=== PATIENT | female | born 2000 | race Caucasian/White ===

== ENCOUNTER 2023-12-17 12:06 | Emergency (ER) | payer OTHER, SELFPAY ==
[2023-12-17 12:08] VITALS: BP 137/93
--- NOTE | 2023-12-17 12:59 | ED.GENMED ---
History of Present Illness
General
Chief Complaint: Skin Problem
Source: patient
Time Seen by Provider: 12/17/23 12:22
History of Present Illness
History of Present Illness:
23-year-old female with past medical history of anxiety, previous substance abuse, IBS, PTSD presenting to the emergency department for evaluation of a generalized rash that started in September, went to urgent care and received an antibiotic course of
doxycycline which patient states made the rash a little bit better for about 2 to 3 weeks but then rash returned. Patient been dealing with a rash on her own but states did not take anything for it until she started to experience more discomfort
earlier this week and went back to urgent care on Monday who placed her on clindamycin but she is still not had any relief. She now notes a little painful sore to the left inguinal region and also noting the rash being worst on the left anterior
part of her chest/breast. Mother believes the rash all started when patient had moved out of their and had been doing laundry on her own and had been using a fabric softener as a detergent accidentally and believes that the patient was allergic to
this or triggered an eczematous reaction which patient had a history of eczema when she was younger. Patient has been unable to take Benadryl because she had previously addicted this medication in the past but notes she is on hydroxyzine already 4
times a day for her other psychiatric treatments. She denies any fevers, chills, rigors. Has not sought any other medical care other than the 2 urgent care visits during the 2+ months of symptoms
Past History
Past History
ED Past Medical History: Psychiatric and Other (POTS, IBS, Gastroparesis, Anxiety, PTSD, )
ED Past Surgical History: Appendectomy
Social History
Tobacco: Smoker
Alcohol: None
Drug: None
Personal: Single
Living: alone
Employment: Employed
Review of Systems
Review of Systems
All Other Systems: ROS reviewed and negative except as documented in HPI and ROS
Phy Exam
Physical Exam
Physical Exam:
GENERAL: Alert , tearful and upset
EYE: conjunctiva clear
Head: Normocephalic atraumatic
NECK: Supple,
ENT: mmm.
LUNGS: no acute respiratory distress
NEUROLOGICAL: Alert and oriented
SKIN: Warm and dry, generalized macular rash in varying stages along the anterior chest, 2 scabbed over lesions at proximal most portion of left breast with no surrounding erythema or fluctuance. 1 erythematous lesion, mildly weeping clear yellow
fluid but without any fluctuance or induration
MUSCULOSKELETAL: well perfused.
PSYCH: Normal and appropriate interaction.
Scores
Heart Failure Risk
Heart Failure Risk Score: Not Applicable
Heart Score for Chest Pain Patients
STEMI patient?: Not applicable
Withdrawal Assessment of Alcohol
Withdrawal Assessment Completed?: Not applicable
Course
Orders/Labs/Results
Orders:
Orders
12/17/23 12:57
Ibuprofen [Motrin] 600 mg PO NOW STA
Oxycodone [Roxicodone] 5 mg PO NOW STA
12/17/23 13:07
Basic Metabolic Panel Urgent
Complete Blood Count/With Diff Urgent
Abnormal Lab Results
12/17/23
13:07
MCHC 32.0 L g/dL
(33.0-37.0)
RDW 14.9 H %
(11.5-14.5)
BUN 4 L mg/dl
(7-17)
12/17/23 13:07
12/17/23 13:07
Vital Signs
Initial and Last Documented VS:
Initial Vital Signs
Temp Pulse Resp BP Pulse Ox
97.9 F 83 16 137/93 98
12/17/23 12:08 12/17/23 12:08 12/17/23 12:08 12/17/23 12:08 12/17/23 12:08
Last Documented Vital Signs
Temp Pulse Resp BP Pulse Ox
97.9 F 83 16 137/93 98
12/17/23 12:08 12/17/23 12:08 12/17/23 12:08 12/17/23 12:08 12/17/23 12:08
MDM/Problems Addressed
Differential Diagnosis Includes:
contact dermatitis, eczema, scabies, hidradenitis suppurativa, less concern for cellulitis/abscess or secondary infection
MDM/Problems Addressed:
23-year-old female presenting the emergency department for evaluation of a rash that has been ongoing since September. Patient had been using a fabric softener instead of detergent and that is shortly around the time when patient's symptoms started.
Was on doxycycline for a short period of time with no relief. Currently on day 5 of clindamycin with no relief. I am less suspicious for an acute infectious etiology. Will check lab work. Will try to have patient follow-up closely with
dermatology. Due to patient's substance abuse history mother did note that patient had previously abused Benadryl so will avoid this as well as patient is already on hydroxyzine. Patient noting a lot of pain. Will treat her with 1 dose of
oxycodone here but will avoid further opiates or other addictive medications for home use.
*Pulse Oximetry
Patient hypoxic: no
*Critical Care Note
Total Time (30-74mins, 75-104mins- exclusive of procedures): Not Applicable
Patient Management
Escalation/DeEscalation of care consider admission/obs:
Patient's labs are unremarkable. Unfortunately there is no patrol mother on-call to try and help facilitate an outpatient follow-up visit with but I did provide the patient with information for patrol mother. Prescription sent to pharmacy.
Patient advised on return precautions. Otherwise stable for discharge home.
ED Attending Note
-
Portions of this chart may have been created with voice recognition software.� Occasional wrong word or��sound alike� substitutions may have occurred due to the inherent limitations of voice recognition software.
Discharge Plan
Departure
Patient Disposition: Home (Routine Discharge)
Date of Disposition: 06/30/24
Time of Disposition: 13:48
Patient with high blood pressure during this ER visit?: Yes
Discharge Problem:
Rash and nonspecific skin eruption
Instructions: Skin Rash (DC)
Prescriptions:
New
prednisone 10 mg Tablet
See Rx Instructions .ROUTE .COMPLEX Qty: 45 0RF
Rx Instructions:
Take By Mouth:
50 mg daily x3 days, 40 mg daily x3 days,
30 mg daily x3 days, 20 mg daily x3 days,
10 mg daily x3 days
famotidine [Pepcid] 20 mg tablet
20 mg PO BID Qty: 20 0RF
No Action
ondansetron 4 MG tablet,disintegrating
4 mg PO TIDPRN PRN (Reason: nausea/vomiting) Qty: 10 0RF
norgestrel-ethinyl estradiol [Valentin (28)] 1 EACH tablet
1 ea PO DAILY
omeprazole 40 MG capsule,delayed release(DR/EC)
40 mg PO DAILY
spironolactone 12.5 MG tablet
12.5 mg PO DAILY
cefadroxil 500 MG capsule
500 mg PO DAILY
amitriptyline 10 MG tablet
15 mg PO DAILY
mupirocin 2 % ointment
1 applic topical BID Qty: 22 0RF
doxycycline monohydrate 100 mg capsule
100 mg PO BID Qty: 20 0RF
Referrals:
UNKNOWN - PT DOES,NOT KNOW [Family Provider] -
Shelley Jordan, DO [Active] - (Dermatology)
Stand Alone Forms: Return to Work
Interventions
Interventions:
*Risk Screen - Suicide Last Done: 12/17/23 12:33
*General Assessment Last Done: 12/17/23 12:33
*Neglect/Abuse Screening Last Done: 12/17/23 12:33
ED- Fall Risk Assessment Last Done: 12/17/23 14:01
*ED COVID-19 Vaccine History Last Done: 12/17/23 12:33
*Nursing Disposition Last Done: 12/17/23 14:01
ED-Skin Assessment Last Done: 12/17/23 14:01
Discharge Date and Time
Discharge Date/Time: 12/17/23 14:01
Print Language: CHINESE
[2023-12-17] MEDS: ROXICODONE 5 MG PO (13:04)
[2023-12-17] MEDS: MOTRIN 600 MG PO (13:05)
[2023-12-17 13:29] LABS: % Basophils 0.5 % (0-2); % Eosinophils 2.4 % (0-6); % Immature Granulocytes 0.3 % (0-0.5); % Lymphocytes 32.9 % (20.5-51.1); % Monocytes 8.4 % (1.7-9.3); % Neutrophils 55.5 % (42.2-75.2); Absolute Eosinophils 0.2 10^3/uL (0-0.7); Absolute Lymphocytes 2.4 10^3/uL (1.2-3.4); Absolute Monocytes 0.6 10^3/uL (0.1-0.6); Absolute Neutrophils 4.1 10^3/uL (1.4-6.5); Hematocrit 39.4 % (37.0-47.0); Hemoglobin 12.6 g/dL (12.0-16.0); Mean Corpuscular Hgb 27.2 pg (27.0-31.0); Mean Corpuscular Volume 85.1 fL (81.0-99.0); Mean Platelet Volume 9.6 fL (7.4-10.4); Nucleated Red Blood Cells % 0 %; Platelet Count 324 10^3/uL (130-400); Red Blood Cell Count 4.63 10^6/uL (4.20-5.40); Red Cell Dist. Width 14.9 % (11.5-14.5); White Blood Cell Count 7.4 10^3/uL (4.8-10.8)
[2023-12-17 13:34] LABS: Blood Urea Nitrogen 4 mg/dl (7-17); Calcium 9.1 mg/dl (8.4-10.2); Carbon Dioxide 28 mmol/L (22-30); Chloride 105 mmol/L (98-107); Glucose 90 mg/dl (70-99); Potassium 4.3 mmol/L (3.5-5.1); Sodium 138 mmol/L (135-145); eGFR > 60.00
== END 2023-12-17 14:01 | disposition home or self-care (01) ==
LOC: EMR 12:06
PROVIDERS: Physician Assistant Medical; EMERGENCY PHYSICIAN Emergency Medicine
DX: R21 Rash and other nonspecific skin eruption (principal); F41.9 Anxiety disorder, unspecified; F19.10 Other psychoactive substance abuse, uncomplicated; K58.9 Irritable bowel syndrome, unspecified; F43.10 Post-traumatic stress disorder, unspecified; F17.200 Nicotine dependence, unspecified, uncomplicated; K31.84 Gastroparesis
CPT/HCPCS: 99283; 80048; 85025

== ENCOUNTER 2025-02-16 22:48 | Emergency (ER) | payer OTHER, SELFPAY ==
[2025-02-16 23:09] VITALS: BP 124/86
[2025-02-17 01:00] VITALS: BMI 36.3
[2025-02-17 01:30] LABS: HCG, Urine Qualitative Screen Negative
--- NOTE | 2025-02-17 05:02 | ED.GENMED ---
History of Present Illness
General
Chief Complaint: Crisis Evaluation
Source: patient
Exam Limitations: none
Time Seen by Provider: 02/17/25 00:48
Nursing documentation reviewed up to this point in time: agreed with
History of Present Illness
History of Present Illness:
This is a 24-year-old woman with history of anxiety, depression, PTSD, POTS, asthma. History of substance abuse but states she has been clean and sober since November of this year.
She admits to increased stress, anxiety with several week history of suicidal thoughts that have been worsening and she presents voluntarily admitting that 'I want to kill myself'
She is voluntarily seeking help for her suicidal thoughts.
Past History
Past History
ED Past Medical History: Psychiatric (Anxiety/depression, PTSD) and Other (POTS, IBS, Gastroparesis, Anxiety, PTSD, )
ED Past Surgical History: Appendectomy
Social History
Tobacco: Smoker
Alcohol: None
Drug: Former user (Sober since November 2024)
Personal: Single
Living: alone
Employment: Employed
Family History
Family History: Other (Noncontributory)
Phy Exam
Physical Exam
Physical Exam:
GENERAL: 24-year-old female appears her stated age, awake and alert, pleasant, somewhat soft-spoken but easily communicative and in no acute distress.
EYE: . anicteric
NECK: Supple, nontender, no meningismus, no significant adenopathy.
ENT: oral mucosa is moist. No rhinorrhea.
CARDIAC: Regular rate and rhythm. no murmur.
LUNGS: Clear breath sounds bilaterally, no acute respiratory distress, no wheezes/rales/rhonchi
ABDOMEN: Soft, nondistended, without focal tenderness
NEUROLOGICAL: Alert and oriented x3, no focal neuro deficits. Gait is steady.
SKIN: Warm and dry, normal color, skin intact. No rash.
MUSCULOSKELETAL: No C/C/E. peripheral pulses are full and equal b/l. No palpable tenderness.
PSYCH: Admits to suicidal thoughts, wish.
Course
Orders/Labs/Results
Orders:
Orders
02/16/25 23:14
1:1 Observation - Suicide/ Violent Behavior As Directed
Crisis Consult Urgent
Reason for Consult: +SI with plan
02/17/25 01:17
Test Result ONCE
02/17/25 01:19
HCG, Urine Qualitative Screen Urgent
Date Specimen was Collected: 02/17/25
Time Specimen was Collected: 01:17
Urine Drug Abuse Screen Urgent
Date Specimen was Collected: 02/17/25
Time Specimen was Collected: :17
Vital Signs
Initial and Last Documented VS:
Initial Vital Signs
Temp Pulse Resp BP Pulse Ox
98.6 F 83 18 124/86 95
02/16/25 23:09 02/16/25 23:09 02/16/25 23:09 02/16/25 23:09 02/16/25 23:09
Last Documented Vital Signs
Temp Pulse Resp BP Pulse Ox
98.6 F 83 18 124/86 95
02/16/25 23:09 02/16/25 23:09 02/16/25 23:09 02/16/25 23:09 02/16/25 23:09
MDM/Problems Addressed
Differential Diagnosis Includes:
Suicidal thoughts, wish. Concern for self-harm.
Prior history of drug use and reports sober since November. Concern for relapse.
MDM/Problems Addressed:
Depression/suicidal thoughts.
Prior history of substance use disorder.
Will consult crisis for evaluation. Patient is agreeable to inpatient psychiatric care.
Will check UDS, UCG.
Will continue one-to-one observation/safety hold.
Chronic conditions affecting care: Psychiatric illness
*Pulse Oximetry
SaO2: 95
Oxygen Mode of Delivery: Room air
Patient hypoxic: no
*Critical Care Note
Total Time (30-74mins, 75-104mins- exclusive of procedures): Not Applicable
Update Note
Update Note:
Patient has been evaluated by Jade talley and has been accepted to [facility].
UDS is negative as is hCG.
She remains agreeable to inpatient psychiatric care.
ED Attending Note
-
Portions of this chart may have been created with voice recognition software.� Occasional wrong word or��sound alike� substitutions may have occurred due to the inherent limitations of voice recognition software.
Discharge Plan
Departure
Patient Disposition: Psych Facility
Date of Disposition: 02/17/25
Time of Disposition: 05:02
Condition: Good
Discharge Problem:
Major depression with suicidal ideation
Prescriptions:
No Action
omeprazole 40 MG capsule,delayed release(DR/EC)
40 mg PO BID
valacyclovir 1 gram Tablet
1,000 mg PO DAILY
rizatriptan 10 mg Tablet,Disintegrating
10 mg PO ONCE PRN (Reason: migraine )
diclofenac sodium 75 mg Tablet,Delayed Release (Dr/Ec)
75 mg PO DAILY
hydroxyzine HCl 25 mg Tablet
25 mg PO Q6 PRN (Reason: anxiety)
albuterol sulfate 90 mcg/actuation Hfa Aerosol Inhaler
2 puff INHALATION QID PRN (Reason: Asthma resuce inhalher)
propranolol 20 mg Tablet
20 mg PO TID
topiramate 50 mg Tablet
50 mg PO DAILY
gabapentin 100 mg Tablet
100 mg PO TID
mirabegron 50 mg Tablet Extended Release 24 Hr
50 mg PO DAILY
prucalopride 2 mg Tablet
2 mg PO DAILY
Seysara 150 mg Tablet
150 mg PO DAILY
Qulipta 60 mg Tablet
60 mg PO DAILY
ondansetron 4 MG tablet,disintegrating
4 mg PO BIDPRN PRN (Reason: nausea/vomiting)
Referrals:
UNKNOWN - PT DOES,NOT KNOW [Family Provider]
Interventions
Interventions:
*Risk Screen - Suicide Last Done: 02/16/25 23:09
*General Assessment Last Done: 02/16/25 23:09
*Neglect/Abuse Screening Last Done: 02/16/25 23:09
*ED- Fall Risk Assessment Last Done: 02/17/25 01:00
*ED COVID-19 Vaccine History Last Done: 02/16/25 23:09
ED-Psychological Assessment Last Done: 02/17/25 01:00
Discharge Date and Time
Print Language: LUXEMBOURGER
[2025-02-17 07:57] VITALS: BP 123/76
--- NOTE | 2025-02-17 11:27 | EDRN ---
Patient awake and alert. calm and watching television while laying in bed when rn entered room. 1:1 for safety observation at bedside. Patient provided apple juice. Denies other needs at this time. Awaiting transport to mental health facility.
== END 2025-02-17 12:04 ==
LOC: EMR 22:48
PROVIDERS: EMERGENCY PHYSICIAN Emergency Medicine
DX: F32.9 Major depressive disorder, single episode, unspecified (principal); R45.851 Suicidal ideations; F41.9 Anxiety disorder, unspecified; F32.A Depression, unspecified; F43.10 Post-traumatic stress disorder, unspecified; G90.A Postural orthostatic tachycardia syndrome [POTS]; J45.909 Unspecified asthma, uncomplicated; K31.84 Gastroparesis; K58.9 Irritable bowel syndrome, unspecified; F17.200 Nicotine dependence, unspecified, uncomplicated
CPT/HCPCS: 99285; 80306; 81025

== ENCOUNTER 2025-04-30 16:34 | Emergency (ER) | payer OTHER, SELFPAY ==
[2025-04-30 16:36] VITALS: BP 143/91
[2025-04-30 16:49] LABS: Hematocrit 39.9 % (37.0-47.0); Hemoglobin 13.5 g/dL (12.0-16.0); Mean Corp Hgb Conc. 33.8 g/dL (33.0-37.0); Mean Corpuscular Volume 85.6 fL (81.0-99.0); Nucleated Red Blood Cells % 0 %; Platelet Count 304 10^3/uL (130-400); Red Cell Dist. Width 12.9 % (11.5-14.5)
[2025-04-30 17:00] LABS: HCG, Serum Qualitative Screen Negative
[2025-04-30 17:04] LABS: ALT (SGPT) 26 U/L (0-35); AST (SGOT) 20 U/L (14-36); Albumin 4.3 g/dl (3.5-5.0); Alkaline Phosphatase 89 U/L (38-126); Blood Urea Nitrogen 9 mg/dl (7-17); Calcium 9.0 mg/dl (8.4-10.2); Carbon Dioxide 24 mmol/L (22-30); Chloride 107 mmol/L (98-107); Glucose 91 mg/dl (70-99); Lipase 166 U/L (23-300); Potassium 3.8 mmol/L (3.5-5.1); Sodium 136 mmol/L (135-145); Total Protein 7.3 g/dl (6.3-8.2); eGFR > 60.00
[2025-04-30 19:44] VITALS: BP 136/77
--- NOTE | 2025-04-30 19:51 | ED.GENMED ---
History of Present Illness
General
Chief Complaint: Abdominal Pain
Source: patient
Exam Limitations: none
Time Seen by Provider: 04/30/25 19:43
History of Present Illness
History of Present Illness:
See MDM
Past History
Past History
ED Past Medical History: Psychiatric (Anxiety/depression, PTSD) and Other (POTS, IBS, Gastroparesis, Anxiety, PTSD, )
ED Past Surgical History: Appendectomy
Social History
Tobacco: Smoker
Alcohol: None
Drug: Former user (Sober since November 2024)
Personal: Single
Living: alone
Employment: Employed
Family History
Family History: Other (Noncontributory)
Phy Exam
Physical Exam
Physical Exam:
See MDM
Course
Orders/Labs/Results
Orders:
Orders
04/30/25 16:38
Test Result ONCE
04/30/25 16:42
Complete Blood Count/With Diff Urgent
Comprehensive Metabolic Panel Urgent
HCG, Serum Qualitative Screen Urgent
Lipase Urgent
04/30/25 19:50
Mag Hydrox/Al Hydrox/Simeth [Maalox] 30 ml Phenobarb/Hyoscy/Atropine/Scop [] 10 ml Viscous Lidocaine 2% [Xylocaine Viscous Cup] 10 ml PO NOW
Sucralfate [Carafate] 1 gram PO NOW STA
US Abdomen Complete/Upper Urgent
Comment:
Reason For Exam: RUQ pain
04/30/25 19:55
Phenobarb/Hyoscy/Atropine/Scop [] 10 ml .ROUTE .STK-MED ONE
04/30/25 19:56
Mag Hydrox/Al Hydrox/Simeth [Maalox] 30 ml .ROUTE .STK-MED ONE
Viscous Lidocaine 2% [Xylocaine Viscous Cup] 15 ml .ROUTE .STK-MED ONE
Abnormal Lab Results
04/30/25
16:42
Absolute Monos (auto) 0.8 H 10^3/uL
(0.1-0.6)
04/30/25 16:42
04/30/25 16:42
Vital Signs
Initial and Last Documented VS:
Initial Vital Signs
Temp Pulse Resp BP Pulse Ox
98.8 F 113 16 143/91 99
04/30/25 16:36 04/30/25 16:36 04/30/25 16:36 04/30/25 16:36 04/30/25 16:36
Last Documented Vital Signs
Temp Pulse Resp BP Pulse Ox
98.8 F 94 18 116/59 98
04/30/25 16:36 04/30/25 20:24 04/30/25 20:24 04/30/25 21:19 04/30/25 21:19
MDM/Problems Addressed
Differential Diagnosis Includes:
Note:
CHIEF COMPLAINT(S)
Vomiting with presence of blood.
HISTORY OF PRESENT ILLNESS
The patient is a 24-year-old female with a history of gastroparesis and irritable bowel syndrome (IBS) presenting with complaints of vomiting with blood. The onset of symptoms occurred today, initially with a significant amount of blood observed.
She acknowledges having vomited blood in the past but describes this as a larger amount. Prior episodes have been attributed to a tear in the esophagus from forceful vomiting, known as a Julieta-Logan tear. The initial episode of vomiting with blood
today occurred without preceding ingestion of food or medications. Subsequent vomiting had less blood present. The patient is currently taking omeprazole twice daily for gastroparesis. There is associated epigastric pain, described as being most
intense in the right upper quadrant. She denies recent red food consumption which confirms the presence of blood. The patient had an endoscopy about six years ago.
PAST MEDICAL AND SURGICAL HISTORY
History of gastroparesis, irritable bowel syndrome (IBS), and use of several unspecified medications. No surgical history on the abdomen was mentioned.
PHYSICAL EXAM
General: Alert, no acute distress. sitting in bed comfortably.
Skin: Warm, dry.
Head: Normocephalic, atraumatic
Neck: Appears supple, trachea midline.
Eyes, Ears, Nose, Mouth, and Throat: Moist mucous membranes
Cardiovascular: No signs of cyanosis
Respiratory: Respirations are non-labored.
Abdomen: Non-distended. Very mild right upper quadrant tenderness
Musculoskeletal: No deformities
Neurological: No focal neurological deficit observed.
Psychiatric: Cooperative, appropriate mood and affect.
PLAN
An ultrasound of the gallbladder is preferred to evaluate for possible gallbladder disease. If results are normal, further testing with a computed tomography (CT) scan is considered, but not immediately planned due to concerns about radiation
exposure. The patient is advised to follow up with her gastroenterology team for potential repeat endoscopy, as it is necessary for definitive evaluation of an ulcer.
DIFFERENTIAL DIAGNOSIS
- Gastrointestinal bleeding
- Julieta-Logan tear
- Peptic ulcer disease
- Gastritis
- Cholecystitis
- Esophagitis
- Gastroesophageal reflux disease (GERD)
- Esophageal varices
- Duodenal ulcer
- Pancreatitis
SUMMARY OF ENCOUNTER
The patient presented with vomiting that included blood, raising concerns for a potential Julieta-Loagn tear or an ulcer given her prior history of gastroparesis and use of omeprazole. Physical examination indicated right upper quadrant tenderness,
suggesting gallbladder involvement. Initial management included planning for an ultrasound and possible CT scan if needed. Medications were provided for symptomatic relief.
EMERGENCY TREATMENTS ADMINISTERED
The patient received a dose of sucralfate and a GI cocktail containing Maalox and lidocaine to manage symptoms while awaiting further evaluation.
MEDICATION RECONCILIATION
- Omeprazole, twice daily
- A dose of sucralfate administered in the ED
- A GI cocktail with Maalox and lidocaine provided
MEDICAL DECISION MAKING
-Complexity of Data Reviewed: Chronic conditions affecting care including gastroparesis and IBS.
The Differential Diagnosis includes, in no particular order and is not limited to:
- Gastrointestinal bleeding
- Julieta-Logan tear
- Peptic ulcer disease
- Gastritis
- Cholecystitis
- Esophagitis
- Gastroesophageal reflux disease (GERD)
- Esophageal varices
- Duodenal ulcer
- Pancreatitis
-Data:
Category 1
The following testing was considered, but ultimately not selected: CT scan initially deferred due to exposure risks.
Category 3
Discussion of management with gastroenterology suggested for follow-up regarding endoscopy.
-Risk:
Consideration of Admission/Observation: Escalation of care including admission/observation was considered given the complexity and risk of the patients presenting complaint, exam findings, and/or their underlying comorbidities. However, ultimately I
feel the patient is safe for outpatient management with close follow-up. Reasoning: Work-up reassuring, does not reveal any acute life/organ threatening processes, patients symptoms well controlled upon reevaluation, reexamination is reassuring,
vitals are stable, patient agreeable with discharge, reliable for follow-up.
DIAGNOSIS
- Gastrointestinal hemorrhage (K92.2)
- Gastroparesis (K31.84)
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
04/30/25 - 21:31
Ultrasound results are favorable. Patient reports significant fatigue, suggestive of illness-related tiredness rather than a desire to leave the hospital. Initiated carafate therapy; patient advised to contact GI team for further consultation as
needed. No changes made to current medication regimen, including existing omeprazole prescriptions. Monitoring for potential signs of worsening condition, such as increased pain or fever, was discussed, although not anticipated. If no improvement is
noted with carafate in several days, discontinuation may be considered.
SUMMARY OF ENCOUNTER
The patient, a 24-year-old female with a history of gastroparesis and irritable bowel syndrome, presented with vomiting that included blood, raising concerns for a potential Julieta-Logan tear or ulcer. The encounter involved examining her symptoms
and providing initial treatment in the emergency department. The condition improved upon reassessment after administration of a GI cocktail, indicating good response to the symptomatic control.
DISPOSITION
Discharge.
ASSESSMENT
Potential Julieta-Logan tear versus an ulcer.
EMERGENCY TREATMENTS ADMINISTERED
GI cocktail containing Maalox and lidocaine.
REASSESSMENT
The patient reported improvement in symptoms following administration of the GI cocktail.
PLAN
Outpatient follow-up with the gastroenterology team to further evaluate and monitor for potential complications. Recommended return precautions included worsening pain or any evidence of fever.
PATIENT EDUCATION AND COUNSELING
Discussed the potential diagnoses of Julieta-Logan tear versus ulcer and the importance of outpatient follow-up with a java web developer. Reviewed return precautions with the patient, emphasizing signs of potential complications such as worsening
pain or fever.
FOLLOW-UP INSTRUCTIONS
Patient advised to follow up with the gastroenterology team. Provided information for scheduling a follow-up visit.
MEDICATION RECONCILIATION
- Omeprazole, administered twice daily.
- GI cocktail containing Maalox and lidocaine provided in the ED.
MEDICAL DECISION MAKING
-Complexity of Data Reviewed: Chronic conditions affecting care include gastroparesis and irritable bowel syndrome. Differential diagnosis includes gastrointestinal bleeding, Julieta-Logan tear, peptic ulcer disease, gastritis, cholecystitis,
esophagitis, gastroesophageal reflux disease (GERD), esophageal varices, duodenal ulcer, pancreatitis.
-Data:
Category 1
The following testing was considered: CT scan initially deferred due to radiation risk in favor of ultrasound for gallbladder evaluation if needed.
Category 3
Discussion of management with the gastroenterology team regarding the need for a follow-up evaluation and possible repeat endoscopy.
-Risk: Consideration of Admission/Observation: Escalation of care including admission/observation was considered given the complexity and risk of the patients presenting complaint, exam findings, and/or their underlying comorbidities. However,
ultimately I feel the patient is safe for outpatient management with close follow-up. Reasoning: Work-up reassuring, does not reveal any acute life/organ threatening processes, patients symptoms well controlled upon reevaluation, reexamination is
reassuring, vitals are stable, patient agreeable with discharge, reliable for follow-up.
DIAGNOSIS
- Gastrointestinal hemorrhage (K92.2)
- Gastroparesis (K31.84)
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
*Pulse Oximetry
SaO2: 99
Oxygen Mode of Delivery: Room air
Patient hypoxic: no
*Critical Care Note
Total Time (30-74mins, 75-104mins- exclusive of procedures): Not Applicable
ED Attending Note
-
Portions of this chart may have been created with voice recognition software.� Occasional wrong word or��sound alike� substitutions may have occurred due to the inherent limitations of voice recognition software.
Discharge Plan
Departure
Patient Disposition: Home (Routine Discharge)
Date of Disposition: 04/30/25
Time of Disposition: 21:32
Patient with high blood pressure during this ER visit?: No
Discharge Problem:
Abdominal pain
Instructions: Abdominal Pain
Prescriptions:
New
sucralfate [Carafate] 1 gram tablet
1 g PO ACHS Qty: 30 0RF
No Action
omeprazole 40 MG capsule,delayed release(DR/EC)
40 mg PO BID
valacyclovir 1 gram Tablet
1,000 mg PO DAILY
rizatriptan 10 mg Tablet,Disintegrating
10 mg PO ONCE PRN (Reason: migraine )
diclofenac sodium 75 mg Tablet,Delayed Release (Dr/Ec)
75 mg PO DAILY
hydroxyzine HCl 25 mg Tablet
25 mg PO Q6 PRN (Reason: anxiety)
albuterol sulfate 90 mcg/actuation Hfa Aerosol Inhaler
2 puff INHALATION QID PRN (Reason: Asthma resuce inhalher)
propranolol 20 mg Tablet
20 mg PO TID
topiramate 50 mg Tablet
50 mg PO DAILY
gabapentin 100 mg Tablet
100 mg PO TID
mirabegron 50 mg Tablet Extended Release 24 Hr
50 mg PO DAILY
prucalopride 2 mg Tablet
2 mg PO DAILY
Seysara 150 mg Tablet
150 mg PO DAILY
Qulipta 60 mg Tablet
60 mg PO DAILY
ondansetron 4 MG tablet,disintegrating
4 mg PO BIDPRN PRN (Reason: nausea/vomiting)
Referrals:
Teresa Chowdhury MD [Active, Gastroenterology]
Gretel Keenan DO [Family Provider, Internal Medicine]
Activity Restrictions/Additional Instructions:
Please return for any worsening symptoms.
You may return at any time if you have further concerns.
Please follow up with your doctor at the first available appointment, preferably this week.
Please make an appointment to see the java web developer.
Thank you for choosing [facility].
Interventions
Interventions:
*Risk Screen - Suicide Last Done: 04/30/25 20:41
*General Assessment Last Done: 04/30/25 20:41
*Neglect/Abuse Screening Last Done: 04/30/25 20:41
*ED- Fall Risk Assessment Last Done: 04/30/25 20:41
*ED COVID-19 Vaccine History Last Done: 04/30/25 20:41
*ED Influenza Vaccine History Last Done: 04/30/25 20:41
NI-Xkzydz-Kvylnbqiyo Assessment Last Done: 04/30/25 20:45
Discharge Date and Time
Print Language: POLISH
[2025-04-30] MEDS: CARAFATE 1 GRAM PO (19:59)
[2025-04-30] MEDS: MAALOX 50 PO (19:59)
[2025-04-30 20:42] VITALS: BMI 38.3
[2025-04-30 21:19] VITALS: BP 116/59
== END 2025-04-30 21:48 | disposition home or self-care (01) ==
LOC: EMR 16:34
PROVIDERS: Emergency Medicine; EMERGENCY PHYSICIAN Student in an Organized Health Care Education/Training Program; FAMILY PHYSICIAN Internal Medicine
DX: R10.11 Right upper quadrant pain (principal); K31.84 Gastroparesis; K58.9 Irritable bowel syndrome, unspecified; G90.A Postural orthostatic tachycardia syndrome [POTS]; F41.9 Anxiety disorder, unspecified; F32.A Depression, unspecified; F43.10 Post-traumatic stress disorder, unspecified; F17.200 Nicotine dependence, unspecified, uncomplicated
CPT/HCPCS: 99284; 76700; 80053; 83690; 84703; 85025

== ENCOUNTER 2025-06-15 19:57 | Emergency (ER) | payer OTHER, SELFPAY ==
[2025-06-15 20:00] VITALS: BP 169/111
[2025-06-15 21:39] VITALS: BMI 43.0
[2025-06-15 21:40] VITALS: BP 141/86
[2025-06-15 21:43] VITALS: BP 141/86
--- NOTE | 2025-06-15 22:57 | ED.GENMED ---
History of Present Illness
General
Chief Complaint: Abdominal Pain
Source: patient and family
Exam Limitations: none
Time Seen by Provider: 06/15/25 22:47
Nursing documentation reviewed up to this point in time: agreed with
History of Present Illness
History of Present Illness:
24-year-old female history of POTS gastroparesis status post appendectomy presents with chills nausea vomiting diarrhea onset 7 days ago not keeping much food down vomiting water seen at an urgent care referred here, multiple blood tests and swabs
done does have some pain in the left lower abdomen she did have amoxicillin few weeks ago for tooth issue
Past History
Past History
ED Past Medical History: Psychiatric (Anxiety/depression, PTSD) and Other (POTS, IBS, Gastroparesis, Anxiety, PTSD, )
ED Past Surgical History: Appendectomy
Social History
Tobacco: Smoker
Alcohol: None
Drug: Former user (Sober since November 2024)
Personal: Single
Living: alone
Employment: Employed
Family History
Family History: Other (Noncontributory)
Review of Systems
Review of Systems
All Other Systems: Not applicable
Constitutional: Reports fatigue and chills
EENT: Denies sore throat
ABD/GI: Reports abdominal pain, nausea, vomiting and diarrhea
: Reports no symptoms
Musculoskeletal: Reports no symptoms
Phy Exam
Physical Exam
Physical Exam:
Physical Exam
General: no apparent distress, not acutely ill
Neck: Lips are slightly dry
Heart: s1/s2 regular rate and rhythm, no murmur. equal radial pulses.
Lungs: no acute respiratory distress. clear bilaterally
Abdomen: Tender in the left lower abdomen
Neuro: alert and oriented. no focal neurological deficits
Skin: no rash
Psychiatric: well kept. interactive and cooperative
Extremities: no edema
Course
Orders/Labs/Results
Orders:
Orders
06/15/25 22:56
Urinalysis Reflex To Culture Urgent
Norovirus by PCR Urgent
SANDRA Source: Feces/Stool
Specimen Description:
STOOL [C difficile Antigen & Toxins] Urgent
SANDRA Source: Feces/Stool
Specimen Description:
Stool Culture Urgent
SANDRA Source: Feces/Stool
Specimen Description:
06/15/25 22:57
0.9% Sodium Chloride 1000 ml [Nss] 2,000 ml IV BOLUS
Diphenhydramine [Benadryl] 25 mg IV NOW STA
Ondansetron Injectable [Zofran] 4 mg IV NOW STA
Test Result ONCE
06/15/25 23:36
Complete Blood Count/With Diff Urgent
Comprehensive Metabolic Panel Urgent
HCG, Serum Qualitative Screen Urgent
06/16/25 00:01
CT Abd/Pel (IV only)-DH only Urgent
Reason For Exam: llq pain
Abnormal Lab Results
06/15/25
23:36
Absolute Monos (auto) 0.7 H 10^3/uL
(0.1-0.6)
Calcium 10.3 H mg/dl
(8.4-10.2)
06/15/25 23:36
06/15/25 23:36
Vital Signs
Initial and Last Documented VS:
Initial Vital Signs
Temp Pulse Resp BP Pulse Ox
98.4 F 96 16 169/111 98
06/15/25 20:00 06/15/25 20:00 06/15/25 20:00 06/15/25 20:00 06/15/25 20:00
Last Documented Vital Signs
Temp Pulse Resp BP Pulse Ox
98.4 F 92 18 124/78 99
06/15/25 20:00 06/16/25 03:15 06/16/25 03:15 06/16/25 03:15 06/16/25 03:15
MDM/Problems Addressed
Differential Diagnosis Includes:
Norovirus dehydration C. difficile colitis viral syndrome diverticulitis infectious diarrhea
MDM/Problems Addressed:
Nausea vomiting diarrhea
Chronic conditions affecting care:
Gastroparesis POTS
Chronic conditions affecting care: Previous abdomnial surgery
Acute Exacerbation and/or Progression of Chronic Illness:
Gastroparesis POTS
Acute Exacerbation and/or Progression of Chronic Illness: Previous abdomnial surgery
*Radiology
Radiology exam reviewed: radiology read reviewed
*Pulse Oximetry
SaO2: 100
Oxygen Mode of Delivery: Room air
Patient hypoxic: no
*Critical Care Note
Total Time (30-74mins, 75-104mins- exclusive of procedures): Not Applicable
Update Note
Update Note:
2:30 AM--CT report noted reviewed with patient second liter infusing will try some ice chips
3:30 AM patient feeling better
ED Attending Note
-
Portions of this chart may have been created with voice recognition software.� Occasional wrong word or��sound alike� substitutions may have occurred due to the inherent limitations of voice recognition software.
Discharge Plan
Departure
Patient Disposition: Home (Routine Discharge)
Date of Disposition: 06/16/25
Time of Disposition: 03:33
Patient with high blood pressure during this ER visit?: No
Condition: Good
Discharge Problem:
Abdominal pain
Instructions: Abdominal Pain, Clear Liquid Diet, Nausea and Vomiting, Adult (DC), Diarrhea in teens and adults
Prescriptions:
No Action
omeprazole 40 MG capsule,delayed release(DR/EC)
40 mg PO BID
valacyclovir 1 gram Tablet
1,000 mg PO DAILY
rizatriptan 10 mg Tablet,Disintegrating
10 mg PO ONCE PRN (Reason: migraine )
diclofenac sodium 75 mg Tablet,Delayed Release (Dr/Ec)
75 mg PO DAILY
hydroxyzine HCl 25 mg Tablet
25 mg PO Q6 PRN (Reason: anxiety)
albuterol sulfate 90 mcg/actuation Hfa Aerosol Inhaler
2 puff INHALATION QID PRN (Reason: Asthma resuce inhalher)
propranolol 20 mg Tablet
20 mg PO TID
topiramate 50 mg Tablet
50 mg PO DAILY
gabapentin 100 mg Tablet
100 mg PO TID
mirabegron 50 mg Tablet Extended Release 24 Hr
50 mg PO DAILY
prucalopride 2 mg Tablet
2 mg PO DAILY
Seysara 150 mg Tablet
150 mg PO DAILY
Qulipta 60 mg Tablet
60 mg PO DAILY
ondansetron 4 MG tablet,disintegrating
4 mg PO BIDPRN PRN (Reason: nausea/vomiting)
sucralfate [Carafate] 1 gram tablet
1 g PO ACHS Qty: 30 0RF
Referrals:
Gretel Keenan DO [Family Provider, Internal Medicine] - Next open appointment
Interventions
Interventions:
*General Assessment Last Done: 06/15/25 21:41
*Neglect/Abuse Screening Last Done: 06/15/25 20:00
*ED COVID-19 Vaccine History Last Done: 06/15/25 21:41
*ED Influenza Vaccine History Last Done: 06/15/25 21:41
[facility] Fall Risk Assessment Tool Last Done: 06/15/25 21:43
*Risk Screen - Suicide (C-SSRS) Last Done: 06/15/25 20:00
UF-Xabqlw-Jboqfiujxp Assessment Last Done: 06/15/25 21:44
Discharge Date and Time
Print Language: PORTUGUESE
[2025-06-15] MEDS: ZOFRAN 4 MG IV (23:32)
[2025-06-15] MEDS: BENADRYL 25 MG IV (23:32)
[2025-06-15] MEDS: NSS 2000 IV (23:34)
[2025-06-15 23:35] VITALS: BP 136/72
[2025-06-16] VITALS: BP 136/69
[2025-06-16] LABS: Hematocrit 38.5 % (37.0-47.0); Hemoglobin 13.0 g/dL (12.0-16.0); Mean Corp Hgb Conc. 33.8 g/dL (33.0-37.0); Mean Corpuscular Volume 84.8 fL (81.0-99.0); Nucleated Red Blood Cells % 0 %; Platelet Count 296 10^3/uL (130-400); Red Cell Dist. Width 12.6 % (11.5-14.5)
[2025-06-16 00:08] LABS: HCG, Serum Qualitative Screen Negative
[2025-06-16 00:11] LABS: ALT (SGPT) 27 U/L (0-35); AST (SGOT) 21 U/L (14-36); Albumin 4.3 g/dl (3.5-5.0); Alkaline Phosphatase 86 U/L (38-126); Blood Urea Nitrogen 10 mg/dl (7-17); Calcium 10.3 mg/dl (8.4-10.2); Carbon Dioxide 24 mmol/L (22-30); Chloride 106 mmol/L (98-107); Estimated Creatinine Clearance > 125 ml/min; Glucose 83 mg/dl (70-99); Potassium 3.9 mmol/L (3.5-5.1); Sodium 136 mmol/L (135-145); Total Protein 7.2 g/dl (6.3-8.2); eGFR > 60.00
[2025-06-16 01:15] VITALS: BP 113/68
[2025-06-16 03:15] VITALS: BP 124/78
== END 2025-06-16 04:20 | disposition home or self-care (01) ==
LOC: EMR 19:57
PROVIDERS: EMERGENCY PHYSICIAN Emergency Medicine; FAMILY PHYSICIAN Internal Medicine
DX: R10.32 Left lower quadrant pain (principal); R11.2 Nausea with vomiting, unspecified; R19.7 Diarrhea, unspecified; G90.A Postural orthostatic tachycardia syndrome [POTS]; F43.10 Post-traumatic stress disorder, unspecified; F41.9 Anxiety disorder, unspecified; F32.A Depression, unspecified; F17.200 Nicotine dependence, unspecified, uncomplicated; J45.909 Unspecified asthma, uncomplicated; K58.9 Irritable bowel syndrome, unspecified; K31.84 Gastroparesis; Z87.820 Personal history of traumatic brain injury
CPT/HCPCS: 99284; 96374; 96375; 96361; 74177; 80053; 84703; 85025; Q9967